=== PATIENT | male | born 1985 ===

== ENCOUNTER → 2018-12-03 | Outpatient (CLI) | payer BC ==
[~2018-12-03] MED LIST: ALBU8.5H IH
[2018-12-03 10:53] LABS: PLATELET COUNT, AUTOMATED 189 K/uL (150-450)
[2018-12-03 12:00] LABS: LDL CHOLESTEROL 119 mg/dl
== END ==
LOC: LAB 10:37
PROVIDERS: ATTEND Internal Medicine
DX: J45.909 Unspecified asthma, uncomplicated (principal); E66.9 Obesity, unspecified
CPT/HCPCS: 36415; 81001; 82040; 82247; 82310; 82374; 82435; 82465; 82565; 82947; 83718; 84075; 84132; 84155; 84295; 84443; 84450; 84460; 84478; 84520; 85025